=== PATIENT | male | born 1985 | race Caucasian/White ===

== ENCOUNTER 2018-03-06 16:49 | Inpatient (IN) | payer BC, OTHER ==
[~2018-03-06] VITALS: Ht 188 cm; Wt 73.5 kg
--- NOTE | 2018-03-06 17:05 | NUR ---
Pre-admission assessment Pre-admission assessment performed in the intake department of [facility]. Pt is severely intoxicated and is unable to answer questions appropriately. He has difficulty keeping his eyes open, pupils are pin point, and he c/o nausea. Vital signs: B/P 118/72, HR 127, RR 16, O2 sat 97%. Dr. Cedeno in intake during assessment. Pt transferred to ED for evaluation due to intoxication.
--- NOTE | 2018-03-06 21:49 | NUR ---
INTAKE ASSESSMENT BP: 127/76, HR:120, RR:16, SpO2:97% Pt is stable and able to be admitted on the unit. Pt complains of nausea, tremors and is noted with unsteady gait. Unit protocols regarding medications and vital signs every 4 hours were explained. Pt verbalized understanding. Will continue admission upon arrival on the unit.
[2018-03-06] MEDS ORDERED: LOPERAMIDE HCL 2 MG CAPSULE PO PRN ×2 (22:30)
[2018-03-06] MEDS ORDERED: diphenhydrAMINE 50 MG CAPSULE PO PRN (22:30)
[2018-03-06] MEDS ORDERED: LORAZEPAM 2 MG/1 ML VIAL IM PRN (22:30)
[2018-03-06] MEDS ORDERED: DIAZEPAM 10 MG TABLET PO PRN ×2 (22:30)
[2018-03-06] MEDS ORDERED: IBUPROFEN 600 MG TABLET PO PRN (22:30)
[2018-03-06] MEDS ORDERED: BUPRENORPHINE HCL 2 MG TAB.SUBL SL PRN (22:30)
[2018-03-06] MEDS ORDERED: DIAZEPAM 5 MG TABLET PO PRN (22:30)
--- NOTE | 2018-03-06 22:30 | NUR ---
CIWA and COWS Assessment Patient is presenting with tremors, stuffy nose, watery eyes, light sensitivity. Patients CIWA is 16 and COWS is 14. Safety in place, bed locked in low position, side rails up x2, and call light within reach. Will continue to monitor.
[2018-03-06 22:40] LABS: BASOPHILS % (AUTO) 0.6 % (0.0-2.0); EOSINOPHILS # (AUTO) 0.1 K/uL (0.0-0.7); EOSINOPHILS % (AUTO) 1.1 % (0.0-7.0); HEMATOCRIT 43.4 % (36.7-47.1); LYMPHOCYTES # (AUTO) 1.5 K/uL (20.0-40.0); LYMPHOCYTES % (AUTO) 28.6 % (20.5-51.5); MEAN CORPUSCULAR HGB CONC 35 g/dL (32.5-36.3); MEAN CORPUSCULAR VOLUME 89.4 fL (73.0-96.2); MONOCYTES # (AUTO) 0.3 K/uL (2.0-10.0); MONOCYTES % (AUTO) 6.3 % (0.0-11.0); NEUTROPHILS # (AUTO) 3.4 K/uL (1.8-8.9); NEUTROPHILS % (AUTO) 63.4 % (38.5-71.5); PLATELET COUNT (AUTO) 250 K/uL (152-348); RED BLOOD CELL COUNT(AUTO) 4.85 MIL/uL (4.06-5.63); WHITE BLOOD COUNT (AUTO) 5.3 K/uL (3.6-10.2)
--- NOTE | 2018-03-06 22:45 | NUR ---
Admission note Patient is a 32 year old male, admitted 03/06/2018 at 2205, here at [facility] for ETOH and Opiate withdrawal. Patient is alert oriented x4, he is full code and NKA. Patient is on fall and seizure precautions. Patient has a history of using ETOH, Heroin, and Suboxone. Patient denies being intoxicated and is able to answer questions. Patients drug use history did not match certain days and every time when he was asked he would give dates that overlapped other dates. Patient was a little incoherent. Patient stated "I'm starting to feel withdrawals." When the patient was asked what are his typical withdrawal symptoms patient states "my symptoms consist of shakiness, unsteadiness, nausea, DT's, hot and colds. Patient has a past medical history of Hepatitis C, fracture right hip, Depression, and Anxiety. Patient denies taking medication at home. Patient has a regular diet at home. Patient admits having a history of seizures due to withdrawal from ETOH and heroin. Patient stated his last seizure was back in 2016 in detox center in [place]. Patient also admits having 3 past overdoses with Heroin and did received medical treatment. Patient has been to multiple treatment center with no success. His most recent location treatment center was at [facility] for 5 days residential in July 2017, and to another one called [facility] from September 2017-December 2017. Patient stated his longest sobriety was for 110 days during September-December 2017. Patient denies induced delirium and cardiac complications due to withdrawal. Patient has not had a 5150 in the past. Patient is under the care of PCP Dr. Lanny Oconnor, in [facility]. Patient denies seeing a psychiatrist. Patient smokes 5 cigarettes a day since he was 22 years old, and also vapes. Substance abuse history: 1) ETOH: Patient has been drinking 750 ml of [place] for one month. Patient has been drinking alcohol since he was 13 years old. Patient's last drink was today 03/06/2018 before arriving to treatment at 1900, he had 750 ml. 2) Heroin: Patient has been using heroin IV 0.2 grams for one month. Patient starting using heroin when he was 27 years old. Patient last used yesterday night 03/05/2018, he used 0.2 grams IV. 3) Suboxone: Patient has been using Suboxone 8 mg SL twice a day for a month. Patient started using Suboxone since he was 32 years old. Patient stated he has Suboxone today 03/06/2018 at 1900. Patient denies family history with drug abuse. Patient's father has a medical history of arthritis, mother has no medical history. Patient two younger siblings and they dont use drugs. Patients highest level of education is high school diploma and some college credits. 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 Patient is depressed, withdrawn and flat affect. When asked the patient why they want to get sober he said " I can't keep doing this to myself." Patient stated the reason he drinks is because he lost his best friend because he 5 years ago and another best friend right after that, and it has been really hard to move on. Patient admits of having legal consequences due to his drinking. Patient also stated that all his previous girlfriends have left him because of his drinking and drug abuse. Patient is 6'2 and weights 162 lbs per standing scale. Patient's skin is intact and warm to touch. Capillary refill is <3 seconds. PERRLA is present, patient is sensitive to light, pupils 4 mm bilaterally. Lungs are clear to auscultation bilaterally. Abdomen is soft and non-distended and bowel sounds are present in all 4 quadrants. Patient reports that her last bowel movement was today 03/06/2018 in the morning. Initial vital signs are as follows: BP 114/72, P95, RR 18, O2 sat 100% on RA, T 99.0. Patient denies any pain. Breathing is even and unlabored. No signs and symptoms of respiratory distress. Patients initial CIWA is 16 and COWS 14, charge nurse and MD notified. Patient was oriented to unit at 2205. Patient was provided instructions regarding unit policies and rules. Patient provided urine and blood sample at intake office. MRSA was ordered, patient said he was recently hospitalized within the last 30 days, he did not elaborated where. Fall and seizure precautions initiated and maintained. Safety measures in place, bed in low and locked position, side rails up x2, and call light within reach. Will continue to monitor. Addendum: 03/07/18 at 0912 by BARBARA WEEKS RN Clarification of Use History: Patient states that in addition to 750mL of bourbon, he also drank 1.5L of wine daily. Patient tested positive for benzodiazepines. When asked, he stated that he does not recall taking benzos, but he said it is possible that he did so while severely intoxicated and thus does not remember it. Patient states that for the most part, he used Heroin 0.2g IV daily for the past month. However, on days when he could not obtain heroin, he took Suboxone. His Suboxone prescription is for 8mg SL BID, but he only took this intermittently. He never took Heroin and Suboxone simultaneously.
[2018-03-06 23:01] LABS: ETHANOL 291 MG/DL (0-0)
[2018-03-06 23:03] LABS: *AMPHETAMINE, URINE NEGATIVE (NEGATIVE); *BARBITURATE, URINE NEGATIVE (NEGATIVE); *CANNABINOID, URINE NEGATIVE (NEGATIVE); *COCCAINE, URINE NEGATIVE (NEGATIVE); *OPIATE, URINE NEGATIVE (NEGATIVE); *PHENCYCLIDINE SCREEN,URINE NEGATIVE (NEGATIVE)
[2018-03-06 23:05] LABS: ALANINE AMINOTRANSFERASE 264 U/L (16-63); ALKALINE PHOSPHATASE 103 U/L (50-136); AMYLASE 23 U/L (25-115); ASPARTATE AMINOTRANSFERASE 363 U/L (15-37); BILIRUBIN,TOTAL 1.3 mg/dL (0.2-1.0); CARBON DIOXIDE 29 mmol/L (21-32); CHLORIDE 103 mmol/L (98-107); CREATININE 0.7 mg/dL (0.6-1.3); GLUCOSE 123 mg/dL (74-106); LIPASE 136 U/L (73-393); MAGNESIUM 1.3 mg/dL (1.8-2.4); POTASSIUM 3.5 mmol/L (3.5-5.1); TOTAL PROTEIN, SERUM 7.5 g/dL (6.4-8.2); UREA NITROGEN, BLOOD 12 mg/dL (7-18)
[2018-03-06] MEDS: ONDANSETRON ODT 4 MG TAB.RAPDIS SL PRN (23:54)
[2018-03-06] MEDS: DICYCLOMINE HCL 20 MG TABLET PO PRN (23:54)
--- NOTE | 2018-03-06 23:54 | NUR ---
PRN Bentyl, Clonidine, Valium, and Zofran Patient was presenting with body aches, nausea, and anxiety. Administered PRN Bentyl, Clonidine, Valium, and Zofran and he tolerated well.
[2018-03-06] MEDS: CLONIDINE HCL 0.1 MG TABLET PO PRN (23:55)
[2018-03-07] VITALS: BP 114/72
--- NOTE | 2018-03-07 | NUR ---
CIWA and Cows Deferred Patient was noted in bed resting with eyes closed, breathing even and unlabored. Per protocol CIWA and COWS is to be assessed while patient is awake. Safety measures in place, will monitor.
--- NOTE | 2018-03-07 00:54 | NUR ---
Reassessment PRN Bentyl, Clonidine, Valium, and Zofran Patient tolerated well and he stated he felt better, patients nausea subside. Safety measures in place and will continue to monitor.
[2018-03-07] MEDS ORDERED: MAGNESIUM OXIDE 400 MG TABLET PO ONE ×2 (02:00→21:00)
[2018-03-07 04:00] VITALS: BP 119/76
--- NOTE | 2018-03-07 07:28 | NUR ---
End of shift note Patient is a 32 year old male admitted last night 03/06/2018. Patient is here for ETOH and Opiate withdrawal. Patient is on 4 day valium and 3 say subutex taper starting today 03/07/2018. Patient is on fall and seizure precautions. Patient had PRN Clonidine, Robaxin, zofran and bentyl. Patient is compliant with plan of care and seems depressed and withdrawn. Patient also had a Mg of 1.3 and was replaced last night. Patient slept for 8 hours and had a total intake of 1,500ml. Patient voided x1 and had no bowel movement during this shift. Breathing is even and unlabored. Safety in place, bed locked in low position, side rails up x2, and call light within reach. Endorse to day shift. Addendum: 03/07/18 at 0729 by BRITTA STOKES RN pasted end of shift twice by accident.
--- NOTE | 2018-03-07 07:30 | NUR ---
Start of Shift Note Pt. is a 32 y/o male admitted for the medically managed withdrawal from ETOH, and Opiates. Pt. was placed on a 4 day valium taper, and a 3 day subutex taper to manage withdrawal symptoms. Endorse from previous shift pt. presented with anxiety, agitation, nausea and stomach cramps. Received pt. in room. Pt. in bed with eyes closed. No signs of distress noted. Safety measures in place. Will continue to monitor pt.'s behavior for safety.
[2018-03-07 08:00] VITALS: BP 116/64
--- NOTE | 2018-03-07 08:00 | NUR ---
COWS/CIWA Assessment COWS of 12 and CIWA of 9. Pt. in room presenting with anxiety, fine hand tremors, diaphoresis, and agitation. Will give medications as ordered. Will continue to monitor pt.'s behavior for safety and medication effectiveness.
[2018-03-07] MEDS ORDERED: DIAZEPAM 5 MG TABLET PO SCH (09:00)
[2018-03-07] MEDS ORDERED: 4 DAY TAPER VALIUM-SERENITY PROTOCOL PO PRN (09:00)
[2018-03-07] MEDS ORDERED: TUBERCULIN,PURIF.PROT.DERIV. 5 TU/0.1 ML TEST ID ONE (09:00)
[2018-03-07] MEDS ORDERED: 3 DAY TAPER BUPRENORPHINE -SERENITY PROTOCOL SL PRN (09:00)
[2018-03-07] MEDS ORDERED: BUPRENORPHINE HCL 2 MG TAB.SUBL SL SCH (09:00)
[2018-03-07 12:00] VITALS: BP 126/75
--- NOTE | 2018-03-07 12:00 | NUR ---
COWS/CIWA Assessment COWS of 16 and CIWA of 15. Pt. in room presenting with anxiety, gross hand tremors, diaphoresis, nausea, and agitation. Pt. assessed by MD and new taper orders given. Will given medications as ordered. Will continue to monitor pt.'s behavior for safety and medication effectiveness.
[2018-03-07] MEDS: CLONIDINE HCL 0.1 MG TABLET PO PRN ×2 (12:08→23:32)
[2018-03-07] MEDS: ONDANSETRON ODT 4 MG TAB.RAPDIS SL PRN ×2 (12:09→20:57)
--- NOTE | 2018-03-07 12:09 | NUR ---
PRN Medication Pt. in room presenting with increased anxiety, agitation, and nausea. PRN Zofran, clonidine, and vistaril given to manage withdrawal symptoms. Will continue to monitor pt.'s behavior for safety and medication effectiveness.
[2018-03-07] MEDS: HYDROXYZINE PAMOATE 25 MG CAPSULE PO PRN ×2 (12:10→23:31)
[2018-03-07] MEDS ORDERED: 5 DAY TAPER BUPRENORPHINE -SERENITY PROTOCOL SL PRN (12:30)
[2018-03-07] MEDS ORDERED: 5 DAY TAPER VALIUM-SERENITY PROTOCOL PO PRN (12:30)
--- NOTE | 2018-03-07 13:00 | NUR ---
PRN Re-Assessment Pt. in room and reports a decrease in symptoms. Medication effective. Will continue to monitor pt.'s behavior for safety, and medication effectiveness.
[2018-03-07] MEDS: BUPRENORPHINE HCL 2 MG TAB.SUBL SL SCH ×3 (13:51→23:35)
[2018-03-07] MEDS: ONDANSETRON 4 MG/2 ML VIAL IM PRN (15:15)
--- NOTE | 2018-03-07 15:15 | NUR ---
PRN Medication Pt. in room complaining of nausea. PRN Zofran IM given at this time to manage symptoms. Will continue to monitor pt.'s behavior for safety and medication effectiveness.
--- NOTE | 2018-03-07 15:45 | NUR ---
PRN Re-Assessment Pt. in room reporting a decrease in nausea. Medication effective. Will continue to monitor pt.'s behavior for safety.
[2018-03-07 16:00] VITALS: BP 116/74
--- NOTE | 2018-03-07 16:00 | NUR ---
COWS/CIWA Assessment COWS of 165 and CIWA of 15. Pt. in room presenting with anxiety, gross hand tremors, diaphoresis, nausea, and agitation. Pt. compliant with medication regiment and treatment plan. Will continue to monitor pt.'s behavior for safety and medication effectiveness
[2018-03-07 16:08] LABS: ALANINE AMINOTRANSFERASE 230 U/L (16-63); ALKALINE PHOSPHATASE 87 U/L (50-136); ASPARTATE AMINOTRANSFERASE 296 U/L (15-37); BILIRUBIN,TOTAL 1.8 mg/dL (0.2-1.0); CARBON DIOXIDE 31 mmol/L (21-32); CHLORIDE 101 mmol/L (98-107); CREATININE 0.6 mg/dL (0.6-1.3); GLUCOSE 120 mg/dL (74-106); MAGNESIUM 1.4 mg/dL (1.8-2.4); POTASSIUM 4.1 mmol/L (3.5-5.1); TOTAL PROTEIN, SERUM 6.5 g/dL (6.4-8.2); UREA NITROGEN, BLOOD 14 mg/dL (7-18)
[2018-03-07] MEDS: DIAZEPAM 10 MG TABLET PO SCH ×2 (16:20→23:30)
[2018-03-07] MEDS: MAG HYDROX/AL HYDROX/SIMETH 30 ML LIQUID UDC PO PRN (17:24)
--- NOTE | 2018-03-07 17:24 | NUR ---
PRN Medication Pt. in room complaining of gastric distress. PRN Maalox given at this time to manage distress. Will continue to monitor pt.'s behavior for safety and medication effectiveness.
--- NOTE | 2018-03-07 18:00 | NUR ---
PRN Re-Assessment Pt. in room and reports improvement in gastric distress. Will continue to monitor pt.'s behavior for safety.
--- NOTE | 2018-03-07 19:23 | NUR ---
End of Shift Note Pt. is a 32 y/o male admitted for the medically managed withdrawal from ETOH, and Opiates. Pt. was placed on a 4 day valium taper, and a 3 day subutex taper to manage withdrawal symptoms initially. After assessment by pt. placed on 5 day subutex, and 5 day valium tapers. Throughout shift pt. presented with anxiety, agitation, nausea and gross hand tremors. Pt. compliant with treatment plan and medication regiment. Safety measures in place. Will endorse pt.'s care to oncoming shift.
--- NOTE | 2018-03-07 19:30 | NUR ---
Start of shift note Patient is a 32 year old male, admitted on 03/06/2018, here is here for medically supervised ETOH and Opiate withdrawal. Patient is on a 5 day Valium and 5 day Subutex taper. Patient is on fall and seizure precautions. Per endorsement patient had PRN Zofran IM and SL, Vistaril, clonidine, and Valium. Patient had an episode of emesis. Patients last CIWAS was 15 and CIWA is 15. Patient is on fall and seizure precautions. Safety in place, bed locked in low position, side rails up x2, and call light within reach. Will continue to monitor.
[2018-03-07 20:00] VITALS: BP 128/73
--- NOTE | 2018-03-07 20:00 | NUR ---
COWS and CIWA Assessment Patient is experiencing tremors, shakes, nausea, vomiting, sweats, stomach cramps, runny nose and body aches. Patients CIWA is 19 and COWS 18. Safety measures in place, will continue to monitor.
[2018-03-07] MEDS ORDERED: PROCHLORPERAZINE MALEATE 10 MG TABLET PO PRN (22:15)
[2018-03-07] MEDS ORDERED: PROCHLORPERAZINE MALEATE 10 MG TABLET ONE (23:11)
--- NOTE | 2018-03-07 23:29 | NUR ---
One time order Compazine 10 mg/Critical lab Mg Patient is presenting with continuous nausea and vomiting and a critical lab value of Mg 1.4. Administered a one-time dose of compazine and Mg-Ox 800mg. Patient tolerated well and will continue to monitor. Safety measures in place.
--- NOTE | 2018-03-07 23:30 | NUR ---
Late med pass Patient was nauseas and kept having multiple episodes of emesis, patient could not tolerate medication well. Administered 2100 medications and patient tolerated well. Safety measures in place, will continue to monitor.
[2018-03-07] MEDS: METHOCARBAMOL 750 MG TABLET PO PRN (23:32)
--- NOTE | 2018-03-07 23:32 | NUR ---
PRN Clonidine, Robaxin, Vistaril and Zofran Patient is presenting with tremors, runny nose, hot and colds, body aches, and anxiety. Administered PRN Clonidine, Robaxin, Vistaril and Zofran and patient tolerated well. Safety measures in place will continue to monitor.
[2018-03-08] VITALS: BP 133/79
--- NOTE | 2018-03-08 | NUR ---
COWS and CIWA Assessment Patient is experiencing tremors, shakes, nausea, vomiting, sweats, stomach cramps, runny nose and body aches. Patients CIWA is 16 and COWS 15. Safety measures in place, will continue to monitor.
--- NOTE | 2018-03-08 00:32 | NUR ---
Reassessment PRN Clonidine, Robaxin, Vistaril and Zofran Patient is resting in bed, nausea is still present and emesis, body aches have resolve. Medication noted to help but did not subside nausea and vomiting. Charge nurse and MD notified. Will continue to monitor.
[2018-03-08] MEDS: TRAZODONE 50 MG TABLET PO PRN ×2 (01:48→20:13)
--- NOTE | 2018-03-08 01:48 | NUR ---
PRN ZOFRAN IM, TRAZODONE Pt complains of nausea and episode of emesis x1. Pt also reports difficulty falling and staying asleep. PRN Zofran IM and Trazodone administered as ordered. Safety measures in place. Will monitor.
[2018-03-08] MEDS: ONDANSETRON 4 MG/2 ML VIAL IM PRN (01:49)
--- NOTE | 2018-03-08 01:49 | NUR ---
PRN Zofran and Trazodone Reassessment Patient is resting in bed, watching tv. Patient had not had another episode of emesis and nausea subside. Patient stated medication was effective. Safety measures in place, will continue to monitor.
[2018-03-08] MEDS ORDERED: DIAZEPAM 10 MG TABLET PO ONE (02:30)
--- NOTE | 2018-03-08 02:30 | NUR ---
One time Valium 20 mg order Patient was experiencing extreme levels of anxiety and hallucinations, administered a onetime dose of valium 20mg. Patient tolerated well, will continue to monitor. Patient is on a 1:1 for safety. Safety measures in place, will continue to monitor.
[2018-03-08 04:00] VITALS: BP 123/81
--- NOTE | 2018-03-08 04:00 | NUR ---
COWS and CIWA Assessment Patient is experiencing shakes, nausea, vomiting, stomach cramps, runny nose and body aches. Patients CIWA is 15 and COWS 15. Safety measures in place, will continue to monitor.
--- NOTE | 2018-03-08 07:20 | NUR ---
Start of Shift Note Pt. is a 32 y/o male admitted for the medically managed withdrawal from ETOH, and Opiates. Pt. is currently on a 5 day Subutex and Valium tapers. Endorse from previous shift pt. presented with multiple episodes of emesis and nausea, gross tremors and insomnia. Pt. was placed on a 1:1 for safety. Received pt. in room. Pt. laying in bed with red rings around his eyes, diaphoresis, tremors, anxiety, and restlessness. Pt. educated on treatment plan and medication regiment for the day. Maalox requested by pt. to help ease the discomfort from so many episodes of emesis. Will give zofran as well. 1:1 sitter at bed side. Safety measures in place. Will continue to monitor pt.s behavior for safety.
--- NOTE | 2018-03-08 07:23 | NUR ---
End of shift note Patient is a 32 year old male, admitted on 03/06/2018, here is here for medically supervised ETOH and Opiate withdrawal. Patient is on a 5 day Valium and 5 day Subutex taper. Patient is on fall and seizure precautions. Patient had PRN Zofran IM and SL, Vistaril, clonidine, Robaxin, compazine, trazodone and Valium. Patient had 15 episode of emesis. Patients last CIWAS was 16 and CIWA is 15. Patient slept 1 hours and had a total intake of 250ml. Patient did not void and had no bowel movements during this shift. Safety in place, bed locked in low position, side rails up x2, and call light within reach. Will endorse to day shift.
[2018-03-08] MEDS: MAG HYDROX/AL HYDROX/SIMETH 30 ML LIQUID UDC PO PRN ×3 (07:40→19:39)
--- NOTE | 2018-03-08 07:40 | NUR ---
PRN Medication Pt. in room complaining of gastric distress. PRN Maalox given at this time to manage withdrawal symptoms. Will continue to monitor pt.'s behavior for safety and medication effectiveness.
[2018-03-08 07:47] LABS: ALANINE AMINOTRANSFERASE 224 U/L (16-63); ALKALINE PHOSPHATASE 88 U/L (50-136); ASPARTATE AMINOTRANSFERASE 261 U/L (15-37); BILIRUBIN,TOTAL 1.9 mg/dL (0.2-1.0); CARBON DIOXIDE 33 mmol/L (21-32); CHLORIDE 99 mmol/L (98-107); CREATININE 0.7 mg/dL (0.6-1.3); GLUCOSE 73 mg/dL (74-106); MAGNESIUM 1.4 mg/dL (1.8-2.4); POTASSIUM 3.1 mmol/L (3.5-5.1); TOTAL PROTEIN, SERUM 6.7 g/dL (6.4-8.2); UREA NITROGEN, BLOOD 12 mg/dL (7-18)
[2018-03-08 08:00] VITALS: BP 123/86
--- NOTE | 2018-03-08 08:00 | NUR ---
COWS/CIWA Assessment COWS of 14 and CIWA of 14. Pt. in room presenting with anxiety, gross hand tremors, diaphoresis, nausea, and agitation. Will give medications as ordered. Will continue to monitor pt.'s behavior for safety and medication effectiveness
[2018-03-08 08:07] LABS: HEPATITIS B SURFACE AG Negative (Negative)
--- NOTE | 2018-03-08 08:30 | NUR ---
PRN Re-Assessment Pt. in room and reports a reduction in symptoms. Medication effective. Will continue to monitor pt.'s behavior and medication effectiveness.
[2018-03-08] MEDS: CLONIDINE HCL 0.1 MG TABLET PO PRN ×2 (08:46→20:23)
[2018-03-08] MEDS: ONDANSETRON ODT 4 MG TAB.RAPDIS SL PRN ×2 (08:46→19:40)
[2018-03-08] MEDS: BUPRENORPHINE HCL 2 MG TAB.SUBL SL SCH ×3 (08:47→20:13)
[2018-03-08] MEDS: DIAZEPAM 5 MG TABLET PO SCH ×4 (08:47→20:13)
[2018-03-08] MEDS: METHOCARBAMOL 750 MG TABLET PO PRN ×2 (08:47→20:12)
[2018-03-08] MEDS: DICYCLOMINE HCL 20 MG TABLET PO PRN (08:47)
--- NOTE | 2018-03-08 08:47 | NUR ---
PRN Medication Pt. in room presenting with anxiety, nausea, tremors, stomach cramps and body aches. PRN Clonidine, Robaxin, Zofran, and Bentyl. Will continue to monitor safety and medication effectiveness.
[2018-03-08] MEDS ORDERED: BUPRENORPHINE HCL 2 MG TAB.SUBL SL SCH (09:00)
[2018-03-08] MEDS ORDERED: DIAZEPAM 5 MG TABLET PO SCH (09:00)
--- NOTE | 2018-03-08 09:30 | NUR ---
PRN Re-Assessment Pt. in room and reports a reduction in symptoms. Medications effective. Will continue to monitor pt.'s behavior for safety.
--- NOTE | 2018-03-08 11:00 | NUR ---
Therapist prompted client to attend group therapy.
[2018-03-08 12:00] VITALS: BP 117/66
--- NOTE | 2018-03-08 12:00 | NUR ---
COWS/CIWA Assessment COWS of 14 and CIWA of 14. Pt. in room presenting with anxiety, gross hand tremors, diaphoresis, nausea, and agitation. Pt. compliant with medication regiment and treatment plan. Will continue to monitor pt.'s behavior for safety and medication effectiveness
[2018-03-08] MEDS ORDERED: MAGNESIUM OXIDE 400 MG TABLET PO ONE ×2 (12:15→21:15)
[2018-03-08] MEDS ORDERED: POTASSIUM CHLORIDE 20 MEQ TAB.PRT.SR PO ONE ×2 (12:15→21:15)
[2018-03-08 16:00] VITALS: BP 124/79
--- NOTE | 2018-03-08 17:00 | NUR ---
PRN Re-Assessment Pt. in room and reports a reduction in symptoms. Medication effective. Will continue to monitor pt.'s behavior and medication effectiveness.
[2018-03-08 18:12] LABS: CREATININE 0.8 mg/dL (0.6-1.3); MAGNESIUM 1.5 mg/dL (1.8-2.4); POTASSIUM 3.3 mmol/L (3.5-5.1)
--- NOTE | 2018-03-08 19:13 | NUR ---
End of Shift Note Pt. is a 32 y/o male admitted for the medically managed withdrawal from ETOH, and Opiates. Pt. is currently on a 5 day Subutex and Valium tapers. Throughout shift pt. presented with nausea, gross tremors, diaphoresis anxiety and agitation. Pt. continues to be on a 1:1 for safety. Safety measures in place. Will endorse pt.s care to oncoming shift.
--- NOTE | 2018-03-08 19:30 | NUR ---
START OF SHIFT Pt is a 32 y/o male admitted on 03/06/18 for ETOH and opiates withdrawal. Pt is on a 5 day Valium taper and a 5 day Subutex taper, tolerating well. Last CIWA 14 14. PRN Clonidine, Robaxin, Zofran, and Bentyl was administered during day shift. Upon assessment Pt presents with anxiety, agitation, nausea, heartburn, constipation, body aches, tremors, and difficulty falling and staying asleep. Medications due. Safety measures in place. Call light within reach. Will continue to monitor.
--- NOTE | 2018-03-08 19:40 | NUR ---
PRN ZOFRAN ODT AND MAALOX ADMINISTRATION Pt complain of nausea and heartburn. PRN medications were administered per order. Safety measures in place. Call light within reach. Will continue to monitor.
[2018-03-08 20:00] VITALS: BP 190/85
--- NOTE | 2018-03-08 20:00 | NUR ---
[facility] 14 COWS 14 Pt presents with agitation, anxiety, tremors, chills, insomnia, generalized body aches, and restlessness. Pt continues on a 1:1 due to safety. Safety measures in place. Call light within reach. Will continue to monitor.
[2018-03-08] MEDS: HYDROXYZINE PAMOATE 25 MG CAPSULE PO PRN (20:13)
--- NOTE | 2018-03-08 20:13 | NUR ---
PRN TRAZODONE, ROBAXIN, AND VISTARIL ADMINISTRATION Pt complains of anxiety, agitation, tremors, generalized body aches, and difficulty falling and staying asleep. PRN medication was administered per order. Safety measures in place. Call light within reach. Will continue to monitor.
[2018-03-08] MEDS: MAGNESIUM HYDROXIDE 30 ML LIQUID UDC PO PRN (20:23)
--- NOTE | 2018-03-08 20:23 | NUR ---
PRN CLONIDINE AND MILK OF MAGNESIA ADMINISTRATION Pt complains of anxiety, agitation, and constipation. PRN medication was administered per order. Safety measures in place. Call light within reach. Will continue to monitor.
--- NOTE | 2018-03-08 20:40 | NUR ---
PRN ZOFRAN ODT AND MAALOX REASSESSMENT Pt denies any nausea, vomiting, or heartburn. Pt stated, "I feel better." PRN medication noted effective. Safety measures in place. Call light within reach. Will continue to monitor.
--- NOTE | 2018-03-08 21:13 | NUR ---
PRN CLONIDINE, TRAZODONE, AND VISTARIL REASSESSMENT Pt continues to complain of anxiety, agitation, tremors, chills, and difficulty falling and staying asleep. Medications noted not effective. Charge nurse aware. Safety measures in place. Call light within reach. Will continue to monitor.
--- NOTE | 2018-03-08 21:23 | NUR ---
PRN ROBAXIN AND MILK OF MAGNESIA Pt continues to complain of generalized body aches and constipation. Medications noted as not effective. Charge nurse aware. Safety measures in place. Call light within reach. Will continue to monitor.
[2018-03-09] VITALS: BP 131/82
--- NOTE | 2018-03-09 | NUR ---
[facility] 14 COWS 14 Pt presents with anxiety, agitation, insomnia, restlessness, tremors, dilated pupils, generalized body aches, and chills. Pt continues to be on a 1:1 for safety reasons. Safety measures in place. Call light within reach. Will continue to monitor.
[2018-03-09] MEDS: MAG HYDROX/AL HYDROX/SIMETH 30 ML LIQUID UDC PO PRN (01:35)
--- NOTE | 2018-03-09 01:35 | NUR ---
PRN Administration Pt reported heartburn - requested relief. Maalox administered. Safety measures in place, will continue to monitor.
--- NOTE | 2018-03-09 02:35 | NUR ---
PRN Reassessment No reports of heartburn at time of assessment. Safety measures in place, will continue to monitor.
--- NOTE | 2018-03-09 04:00 | NUR ---
COWS/CIWA DEFERRED AND VITAL SIGNS REFUSED Patient is noted in bed with eyes closed. Breathing even and non labored. COWS/CIWA and vital signs not able to be completed per order. Safety measures in place. Call light within reach. Will continue to monitor.
--- NOTE | 2018-03-09 07:25 | NUR ---
END OF SHIFT Pt is a 32 y/o male admitted on 03/06/18 for ETOH and opiates withdrawal. Pt to continue a 5 day Valium taper and a 5 day Subutex taper. Pt presented with anxiety, agitation, nausea, heartburn, constipation, body aches, tremors, and difficulty falling and staying asleep.PRN Clonidine, Trazodone, Robaxin, Vistaril, Zofran, Milk of Magnesia, and Maalox was administered, effective in S/S of withdrawal as verbalized by Pt. Last CIWA 14 COWS 14. Pt slept 6 hours. Intake 1736 ml, void x 1, stool x 1. Safety measures in place. Call light within reach. Pt's needs have been met. Endorsed to day shift.
[2018-03-09 07:34] LABS: ALANINE AMINOTRANSFERASE 178 U/L (16-63); ALKALINE PHOSPHATASE 84 U/L (50-136); ASPARTATE AMINOTRANSFERASE 159 U/L (15-37); BILIRUBIN,TOTAL 1.2 mg/dL (0.2-1.0); CARBON DIOXIDE 33 mmol/L (21-32); CHLORIDE 100 mmol/L (98-107); CREATININE 0.7 mg/dL (0.6-1.3); GLUCOSE 93 mg/dL (74-106); TOTAL PROTEIN, SERUM 6.2 g/dL (6.4-8.2); UREA NITROGEN, BLOOD 11 mg/dL (7-18)
[2018-03-09 08:00] VITALS: BP 126/73
--- NOTE | 2018-03-09 08:00 | NUR ---
START OF SHIFT COWS CIWA ASSESSMENT Pt 32 y/o male admitted for eoth and opiate withdrawal. Pt received in room on bed with eyes closed resting, but arousable to name. Pt alert and oriented to name, place, and time. Perrla. Skin warm and dry to touch. Respirations even and unlabored. Appears disheveled. Clothes scattered throughout the room. Encouraged to maintain hygiene. Cows=7 ciwa=6@0800. Anxious. Pressured speech. Fidgety. It was reported that pt slept for 6 hours last night. Last cows=14 ciwa=14@1999. Pt is on a 5 day valium taper and is on day 3. Pt also on a 5 day subutex taper and is on day 3. Bed on lowest position with side rails x2 up for safety. Call light within reach. Pt is scheduled to be discharged today.
[2018-03-09] MEDS: DIAZEPAM 5 MG TABLET PO SCH ×3 (08:39→21:15)
[2018-03-09] MEDS ORDERED: BUPRENORPHINE HCL 2 MG TAB.SUBL SL SCH ×2 (09:00)
[2018-03-09] MEDS ORDERED: DIAZEPAM 5 MG TABLET PO SCH (09:00)
[2018-03-09 12:00] VITALS: BP 123/75
--- NOTE | 2018-03-09 12:00 | NUR ---
COWS CIWA ASSESSMENT cows=11 ciwa=11. Bilateral hand tremors noted. Anxious and restless. Pressured speech. Complaints of intermittent perspiration and chills. General discomfort.
[2018-03-09] MEDS: BUPRENORPHINE HCL 2 MG TAB.SUBL SL SCH ×2 (14:08→21:15)
[2018-03-09] MEDS: CEPHALEXIN MONOHYDRATE 500 MG CAPSULE PO SCH ×2 (15:08→22:34)
[2018-03-09] MEDS: ONDANSETRON ODT 4 MG TAB.RAPDIS SL PRN (15:08)
--- NOTE | 2018-03-09 15:10 | NUR ---
PRN ZOFRAN Pt states is nauseated. Zofran odt prn per MD order.
[2018-03-09 16:00] VITALS: BP 126/81
--- NOTE | 2018-03-09 16:00 | NUR ---
COWS CIWA ASSESSMENT cows=11 ciwa =11. Anxious and restless.Pressured speech. Irritable. Bilateral hand tremors noted. Complaints of generalized discomfort. Nausea.
--- NOTE | 2018-03-09 16:10 | NUR ---
PRN ZOFRAN EVAL Pt states medication effective and denies any nausea at this time.
[2018-03-09] MEDS: MINERAL OIL/PETROLAT OPHT OINT 3.5 GM TUBE EACHEYE PRN ×2 (16:30→21:25)
--- NOTE | 2018-03-09 16:33 | NUR ---
PRN ARTIFICIAL EYE OINTMENT Pt with complaints of dry eyes. Prn artificial eye ointment per MD order administered.
--- NOTE | 2018-03-09 17:33 | NUR ---
PRN ARTIFICIAL EYE OINTMENT Pt states medication is effective.
--- NOTE | 2018-03-09 18:57 | NUR ---
END OF SHIFT Pt 32 y/o male admitted for eoth and opiate withdrawal. Pt alert and oriented to name, place, and time. Perrla. Skin warm and moist touch. Respirations even and unlabored. Appears disheveled. Clothes and empty drink bottles scattered throughout the room. Encouraged to maintain hygiene. Isolative to room with minimal peer interaction. Low motivation for self care. Pt selective with group activity today. Pt 1:1 sitter was dc'd today. Anxious and restless. Irritable and agitated. Pressured speech. Generalized body aches. Complaints of intermittent perspiration and chills, and generalized discomfort. Episode of nausea. Bilateral hand tremors. Medication compliant. Last cows=11 ciwa=11 @1600. Pt is on a 5 day valium taper and is on day 3. Pt also on a 5 day subutex taper and is on day 3. Bed on lowest position with side rails x2 up for safety. Call light within reach.
--- NOTE | 2018-03-09 19:30 | NUR ---
START OF SHIFT Received patient awake, alert, and oriented x4 ambulating about the facility with respirations even and unlabored. Patient is a 32 year old male admitted for medically supervised detox from ETOH and opiates with secondary diagnoses of depression, anxiety, hepatitis C, and a fracture of his right hip 13 months prior. Patient appears disheveled, irritable, agitated, tremulous, anxious, and worried. Skin is warm and dry to touch. Per endorsement, he was on a 1 to 1 for unsteady gait related to frequent vomiting and that he required PRN eye ointment for itchy and dry eyes. Will continue to monitor.
[2018-03-09 20:00] VITALS: BP 133/82
--- NOTE | 2018-03-09 20:00 | NUR ---
COWS = 10, CIWA = 10 Patient continues to present with anxiety, restlessness, nausea, and tremors. No requests for PRN medications. Will continue to monitor.
[2018-03-09] MEDS: MAGNESIUM HYDROXIDE 30 ML LIQUID UDC PO PRN (21:15)
[2018-03-09] MEDS: TRAZODONE 50 MG TABLET PO PRN (21:25)
--- NOTE | 2018-03-09 21:25 | NUR ---
PRN MEDICATION ADMINISTRATION Patient reported dry and itchy eyes, difficulty falling asleep, and constipation. PRN medications administered as follows: Artificial Tears Ophthalmic ointment, Trazodone, Milk of Magnesia for respective complaints of negative symptoms per MD orders. Will reassess within one hour and continue to monitor.
--- NOTE | 2018-03-09 22:25 | NUR ---
PRN MEDICATION REASSESSMENT Patient reports relief from dry and itchy eyes and relief from insomnia. Will continue to monitor for relief from constipation during shift. No new complaints of distress at this time.
--- NOTE | 2018-03-10 | NUR ---
VITAL SIGNS AND COWS/CIWA ASSESSMENT DEFERRED Patient noted lying in bed with even, unlabored respirations. HOB and bilateral side rails raised. Bed in a low and locked position. Vital signs refused and COWS/CIWA assessment deferred. Will continue to monitor.
--- NOTE | 2018-03-10 04:00 | NUR ---
VITAL SIGNS AND COWS/CIWA ASSESSMENT DEFERRED Patient noted lying in bed with even, unlabored respirations. HOB and bilateral side rails raised. Bed in a low and locked position. Call light within reach. Vital signs refused and COWS/CIWA assessment deferred. Will continue to monitor.
[2018-03-10] MEDS: CEPHALEXIN MONOHYDRATE 500 MG CAPSULE PO SCH ×3 (06:38→22:05)
--- NOTE | 2018-03-10 07:32 | NUR ---
END OF SHIFT Patient is noted in bed with eyes closed and even, unlabored respirations. HOB and bilateral side rails are raised. Seizure and fall precautions are maintained. Patient is a 32 year old male admitted for medically supervised detox from ETOH and opiates with secondary diagnoses of depression, anxiety, hepatitis C, and a fracture of his right hip 13 months prior. Patient was noted to appear disheveled with uncombed hair. He was also tremulous, anxious, and had a worried affect. He reported having itchy eyes, trouble sleeping, and constipation for which PRN medications artificial tears, Trazodone, and Milk of Magnesia were given respectively. All medications were noted to be effective except for Milk of Magnesia which was endorsed to AM nurse. Encouraged patient to intake more fluids including prune juice and to increase ambulation and physical activity. Last COWS is 10 and last CIWA is 10 taken at 2000. Patient slept for about 8 hours. Endorsed to AM nurse with all pertinent information discussed.
[2018-03-10 08:00] VITALS: BP 108/64
--- NOTE | 2018-03-10 08:00 | NUR ---
START OF SHIFT COWS CIWA ASSESSMENT Pt 32 y/o male admitted for etoh and opiate withdrawal. Pt received in room on bed awake watching television. Pt alert and oriented to name, place, and time. Perrla. Skin warm and moist to touch. Respirations even and unlabored. Appears disheveled. Hair uncombed. Clothes and empty drink bottles scattered throughout the room. Encouraged to maintain hygiene. Cows=10 ciwa= 10@0800. Anxious and restless. Pressured speech noted. Irritable and agitated. Bilateral hand tremors noted. Complaints of generalized discomfort. It was reported that pt slept for 8 hours last night. Last cows=10 ciwa=10 @ 1999. Pt is on a 5 day valium taper and is on day 4. Pt is on a 5 day subutex taper and is on day 4. Bed on lowest position with side rails x 2 up for safety. Call light within reach.
[2018-03-10] MEDS: DIAZEPAM 5 MG TABLET PO SCH ×2 (08:09→20:36)
[2018-03-10] MEDS: BUPRENORPHINE HCL 2 MG TAB.SUBL SL SCH ×3 (08:09→20:36)
[2018-03-10] MEDS: MINERAL OIL/PETROLAT OPHT OINT 3.5 GM TUBE EACHEYE PRN ×2 (08:09→14:18)
--- NOTE | 2018-03-10 08:18 | NUR ---
PRN ARTIFICIAL TEARS Pt with c/o dry eyes. Artificial tears prn per MD order given.
[2018-03-10] MEDS ORDERED: DIAZEPAM 5 MG TABLET PO SCH (09:00)
--- NOTE | 2018-03-10 09:18 | NUR ---
PRN ARTIFICIAL TEARS Pt states effective.
[2018-03-10] MEDS: GABAPENTIN 300 MG CAPSULE PO SCH ×3 (10:40→16:31)
[2018-03-10 12:00] VITALS: BP 126/77
--- NOTE | 2018-03-10 12:00 | NUR ---
COWS CIWA ASSESSMENT cows=10 ciwa=10. Bilateral hand tremors noted. Anxious and restless. Pressured speech. Irritable. Complaints of generalize discomfort.
[2018-03-10] MEDS: MAG HYDROX/AL HYDROX/SIMETH 30 ML LIQUID UDC PO PRN ×2 (12:09→16:34)
--- NOTE | 2018-03-10 12:10 | NUR ---
PRN MALOOX Complaints of heartburn. Maloox prn per MD order given.
--- NOTE | 2018-03-10 13:10 | NUR ---
PRN MALOOX EVAL Pt states medication effective.
[2018-03-10] MEDS: METHOCARBAMOL 750 MG TABLET PO PRN (14:18)
--- NOTE | 2018-03-10 14:30 | NUR ---
PRN ARTIFICIAL TEARS MOTRIN ROBAXIN States dry eyes. Artificial tears prn per MD order given. Complaints of left foot pain 08/31. Motrin po prn per MD order. Complaints of body aches 10/31. Robaxin po prn per MD order given.
--- NOTE | 2018-03-10 15:30 | NUR ---
PRN ARTIFICIAL TEARS MOTRIN ROBAXIN Pt states medication effective. left foot pain 2/10. Generalized body aches 4/10.
[2018-03-10 16:00] VITALS: BP 131/83
--- NOTE | 2018-03-10 16:00 | NUR ---
COWS CIWA ASSESSMENT cows=10 ciwa=10. Anxious and restless. Pressured speech. Bilateral hand tremors noted. Irritable. Complaints of generalized discomfort.
--- NOTE | 2018-03-10 16:34 | NUR ---
PRN MALOOX pt with complaints heartburn. Maloox prn per MD order given.
[2018-03-10] MEDS ORDERED: METHOCARBAMOL 750 MG TABLET PO PRN (17:15)
--- NOTE | 2018-03-10 17:34 | NUR ---
PRN MALOOX Pt states medication effective.
--- NOTE | 2018-03-10 18:43 | NUR ---
END OF SHIFT Pt 32 y/o male admitted for eoth and opiate withdrawal. Pt alert and oriented to name, place, and time. Perrla. Skin warm and moist to touch. Respirations even and unlabored. Appears disheveled. Clothes and empty drink bottles scattered throughout the room. Encouraged to maintain hygiene. Anxious and restless. Pressured speech. Irritable. Bilateral hand tremors noted. Complaints of generalized discomfort. Isolative to room with minimal peer interaction. Pt attended group activity. Last cows=10 ciwa=10 @1600. Pt is on a 5 day valium tape and is on day 4. Pt is on 5 day subutex taper and is on day 4. Bed on lowest position with side rails x2 up for safety. Call light within reach.
--- NOTE | 2018-03-10 19:30 | NUR ---
Start of shift note Received report from day shift nurse. Patient is a 32 year old male admitted for ETOH and Opiates. Patient is on 5 day Valium and 5 day Subutex taper. Patient with left distal 2nd toe abscess. S/P I &D. On Keflex antibiotic. PRN Motrin, Robaxin, Maalox x 2 and Artificial tears x 2. Last COWS 10 and CIWA 10. Patient alert and oriented x 4. Patient presents with flat affect, depressed mood, anxious and c/o pain on 2nd toe. Safety measures in place. Will continue to monitor.
[2018-03-10 20:00] VITALS: BP 128/95
--- NOTE | 2018-03-10 20:00 | NUR ---
COWS and CIWA assessment Patient reports anxiety, restlessness, hot and cold sweat, bilateral hand tremors, restless legs and c/o left 2nd toe . COWS 12 and CIWA 12
[2018-03-10] MEDS: KETOROLAC TROMETHAMINE 30 MG INJ IM PRN (20:39)
--- NOTE | 2018-03-10 20:39 | NUR ---
PRN Toradol IM administration Patient was c/o left toe pain 12/01. Will monitor for effectiveness
--- NOTE | 2018-03-10 21:09 | NUR ---
PRN Toradol IM re-assessment Patient states Toradol is helpful and effective. Pain lessened
[2018-03-10] MEDS: TRAZODONE 50 MG TABLET PO PRN (22:05)
--- NOTE | 2018-03-10 22:05 | NUR ---
PRN Trazadone administration Patent requests for sleep aid. Will monitor for effectiveness
--- NOTE | 2018-03-10 23:05 | NUR ---
PRN Trazadone re-assessment Patient lying in bed with eyes closed. Respiration even and unlabored. Will continue to monitor
--- NOTE | 2018-03-11 | NUR ---
COWS and CIWA assessment Patient lying in bed with eyes closed. Respiration even and unlabored. Will continue to monitor
--- NOTE | 2018-03-11 04:00 | NUR ---
COWS and CIWA assessment Patient lying in bed with eyes closed. Respiration even and unlabored. Will continue to monitor
[2018-03-11] MEDS: CEPHALEXIN MONOHYDRATE 500 MG CAPSULE PO SCH ×3 (06:22→21:17)
--- NOTE | 2018-03-11 07:28 | NUR ---
End of shift note Patient slept 8 hours. Fluid intake 736 ml. Voided x 1 BM x 1. Patient compliant with medication. Scheduled medication and taper given as ordered, tolerated well and no adverse reaction. On Keflex antibiotic for left 2nd toe. Encouraged fluids. PRN Trazadone and Toradol IM given, effective. Last COWS 12 and CIWA 12. Patient alert and oriented x 4. Patient presents with flat affect, depressed mood , anxious and c/o pain on 2nd toe. Safety measures in place. Will continue to monitor.
[2018-03-11 08:00] VITALS: BP 121/74
--- NOTE | 2018-03-11 08:00 | NUR ---
START OF SHIFT NOTE Received report from night nurse, 32 year old male admitted for ETOH/Heroin withdrawal and patient continues with his Valium/Subutex taper tolerating well. Per endorsement patient received PRN Toradol and Trazodone, slept for 8 hours, last COWS-12, CIWA-12. Received patient alert awake oriented x4. Breathing normal no SOB noted. Skin intact warm and dry to touch. Educated patient regarding plan of the day and medication regimen. All safety measures in place, call light within reach. Will cont with plan of care.
[2018-03-11] MEDS: GABAPENTIN 300 MG CAPSULE PO SCH ×3 (08:34→16:14)
--- NOTE | 2018-03-11 08:34 | NUR ---
CIWA/COWS ASSESSMENT COWS-11, CIWA-11, Patient presented with labile facial expression, body aches, anxious, agitated, restless, fatigue, anhedonia, stomach cramps, chills, sweats, bilateral hand tremors noted. Patient was given his scheduled medications. Will cont to monitor.
[2018-03-11] MEDS ORDERED: BUPRENORPHINE HCL 2 MG TAB.SUBL SL SCH (09:00)
[2018-03-11] MEDS ORDERED: DIAZEPAM 5 MG TABLET PO SCH (09:00)
[2018-03-11] MEDS: NEOMY/BACITRAC/POLYMI OINT 28.35 GM TUBE TOP SCH (09:23)
[2018-03-11] MEDS: KETOROLAC TROMETHAMINE 30 MG INJ IM PRN ×2 (09:26→16:16)
--- NOTE | 2018-03-11 09:26 | NUR ---
PRN TORADOL Patient c/o left foot second toe pain 01/01, PRN Toradol 30mg IM administered as ordered. Will cont to monitor and reassess.
--- NOTE | 2018-03-11 09:56 | NUR ---
TORADOL REASSESSMENT Patient reported Toradol was effective pain lower to 3/10.
[2018-03-11 12:00] VITALS: BP 132/82
--- NOTE | 2018-03-11 12:00 | NUR ---
CIWA/COWS ASSESSMENT Patient continues to exhibited s/s of withdrawal such as anxiety, agitation, restless, fatigue, chills, sweats, bilateral hand tremors noted. COWS-9, CIWA-9. Will cont to monitor.
--- NOTE | 2018-03-11 13:59 | NUR ---
Therapist prompted client to attend all group therapy sessions.
[2018-03-11] MEDS ORDERED: CEPH500C2 PO (14:08)
[2018-03-11] MEDS ORDERED: METH-406 PO (14:08)
[2018-03-11] MEDS ORDERED: CLON0.1T14 PO (14:08)
[2018-03-11] MEDS ORDERED: TRAZ-213 PO (14:08)
[2018-03-11] MEDS ORDERED: GABA-534 PO (14:08)
[2018-03-11 16:00] VITALS: BP 150/90
--- NOTE | 2018-03-11 16:16 | NUR ---
PRN TORADOL Patient reported left foot second toe pain /, PRN Toradol 30mg IM administered as ordered. Will cont to monitor and reassess.
--- NOTE | 2018-03-11 16:36 | NUR ---
TORADOL REASSESSMENT Patient reported Toradol was effective pain lower to 2/10.
--- NOTE | 2018-03-11 19:06 | NUR ---
END OF SHIFT NOTE Gave report to night nurse 32 year old male admitted for ETOH/Heroin withdrawal and patient completed with Valium and Subutex taper tolerated well. Patient set for discharge in AM. Patient presented with labile facial expression, unkempt room, anxious, agitated, fatigue, anhedonia, restless, aches, bilateral hand tremors. patient received his scheduled medications along with PRN Toradol IM x2 for left foot second toe pain noted to be effective. Patient noted interacting with peers and attending groups therapies. Appetite good. Encourage PO fluids as tolerated. Patient denies any SI/HI. All needs attended and met. Last COWS score was 7/CIWA-7 at 1600. All safety measures in place. Endorse patient to night nurse in stable condition.
--- NOTE | 2018-03-11 19:30 | NUR ---
START OF SHIFT Pt is a 32 year old male admitted for ETOH/Heroin withdrawal. He has completed his Valium and Subutex taper and is scheduled for discharge in the morning. Pt received in room,pleasant on approach,stated that he will be going to an out patient program upon discharge. Last COWS score was 7; CIWA-7 at 1600. All safety measures in place, call light is within reach,Will continue to monitor for safety.
[2018-03-11 20:00] VITALS: BP 135/88
[2018-03-11] MEDS: MINERAL OIL/PETROLAT OPHT OINT 3.5 GM TUBE EACHEYE PRN (21:23)
--- NOTE | 2018-03-11 21:23 | NUR ---
PRN Artificial tears ophthalmic ointment administered as ordered for c/o itching.Will continue to monitor.
--- NOTE | 2018-03-11 22:17 | NUR ---
PRN REASSESSMENT PRN effective;Pt states feeling better.
[2018-03-12] VITALS: BP 129/85
--- NOTE | 2018-03-12 | NUR ---
COWS=5 / CIWA=5. M/B ANXIETY DUE TO PAIN AND INSOMNIA.
[2018-03-12] MEDS: KETOROLAC TROMETHAMINE 30 MG INJ IM PRN ×2 (00:05→08:49)
[2018-03-12] MEDS: TRAZODONE 50 MG TABLET PO PRN (00:06)
--- NOTE | 2018-03-12 00:07 | NUR ---
PRN MEDS PRN TORADOL IM GIVEN ORDERED FOR C/O LEFT FOOT PAIN,12/01.PRN TRAZODONE 50 MG PU GIVEN FOR C/O INSOMNIA.WILL MONITOR.
--- NOTE | 2018-03-12 01:00 | NUR ---
PRN REASSESSMENT Pt is calm and resting in bed with eyes closed,no s/s of distress noted; breathing is even and non labored; will continue to monitor.
--- NOTE | 2018-03-12 04:00 | NUR ---
COWS and CIWA deferred Patient is lying in bed with eyes closed. Respiration even and unlabored, no s/s of distress noted,v/s refused. Will continue to monitor
--- NOTE | 2018-03-12 06:39 | NUR ---
END OF SHIFT Pt is a 32 year old male admitted for ETOH/Heroin withdrawal. He has completed his Valium and Subutex taper and is scheduled for discharge this morning. Last COWS score was 5; CIWA-5 at 0000.PRN artificial tears,Trazodone and Toradol IM were given with good effect.Pt slept 6 hours,fluid intake was 1036 ml,voided x 3. All safety measures in place, call light is within reach,Will continue to monitor for safety.
[2018-03-12] MEDS: CEPHALEXIN MONOHYDRATE 500 MG CAPSULE PO SCH (06:45)
--- NOTE | 2018-03-12 07:55 | NUR ---
START OF SHIFT NOTE Received report from night nurse, 32 year old male admitted for ETOH/Heroin withdrawal and patient completed his Valium/Subutex taper tolerated well. Per endorsement patient received PRN Toradol and Trazodone, slept for 6 hours, last COWS-5, CIWA-5. Received patient alert awake oriented x4. Breathing normal no SOB noted. Skin intact warm and dry to touch. Educated patient regarding plan of the day and medication regimen. Patient set for discharge today. All safety measures in place, call light within reach. Will cont with plan of care.
[2018-03-12 08:00] VITALS: BP 137/90
[2018-03-12] MEDS: GABAPENTIN 300 MG CAPSULE PO SCH (08:39)
[2018-03-12] MEDS: NEOMY/BACITRAC/POLYMI OINT 28.35 GM TUBE TOP SCH (08:39)
--- NOTE | 2018-03-12 08:49 | NUR ---
PRN TORADOL Patient reported left foot second toe pain 8/10, PRN Toradol 30mg IM administered as ordered. Will cont to monitor and reassess.
--- NOTE | 2018-03-12 09:19 | NUR ---
TORADOL REASSESSMENT Patient reported Toradol was effective pain lower to 2/10.
--- NOTE | 2018-03-12 09:48 | NUR ---
DISCHARGE NOTE Patient is alert awake oriented discharge from [facility] in stable condition. Vital signs WNL. Skin intact warm and dry to touch. Patient denies any SI/HI. All discharge paper work completed signed and dated. All belongings returned to the patient and prescriptions. Patient discharge from [facility] to "[facility]" in stable condition
== END 2018-03-12 09:48 | disposition other institution (70) | DRG 895 ==
LOC: SRC 16:49 → UNDOADMIN 16:49 → SRC 21:13
PROVIDERS: ADMIT Family Medicine Addiction Medicine; ATTEND Family Medicine Addiction Medicine
PROC: HZ2ZZZZ Detoxification Services for Substance Abuse Treatment (ICD-10-PCS; principal; 2018-03-06)
PROC: HZ31ZZZ Individual Counseling for Substance Abuse Treatment, Behavioral (ICD-10-PCS; 2018-03-08)
PROC: HZ41ZZZ Group Counseling for Substance Abuse Treatment, Behavioral (ICD-10-PCS; 2018-03-09)
PROC: 0H9NXZZ Drainage of Left Foot Skin, External Approach (ICD-10-PCS; 2018-03-10)
DX: F10.231 Alcohol dependence with withdrawal delirium (principal); G40.509 Epileptic seizures related to external causes, not intractable, without status epilepticus; L02.619 Cutaneous abscess of unspecified foot; F11.23 Opioid dependence with withdrawal; Y90.8 Blood alcohol level of 240 mg/100 ml or more; Z87.81 Personal history of (healed) traumatic fracture; Z82.61 Family history of arthritis; F17.210 Nicotine dependence, cigarettes, uncomplicated; F41.1 Generalized anxiety disorder; E83.42 Hypomagnesemia; F32.9 Major depressive disorder, single episode, unspecified; H10.9 Unspecified conjunctivitis; L03.032 Cellulitis of left toe
CPT/HCPCS: 36415; 70030-TC; 80307; 80346; 83690; 83735; 84443; 85025; 86592; 86705; 86803; 87340; 87806; G0480; J1885; J2405; Q0162; Q0164

== ENCOUNTER 2020-12-21 13:24 | Emergency (ER) | payer BC, OTHER ==
[~2020-12-21] VITALS: Ht 185.4 cm; Wt 81.6 kg
[~2020-12-21 13:24] MED LIST: CEPH500C2 PO; CLON0.1T14 PO; GABA-534 PO; METH-406 PO; TRAZ-252 PO
--- NOTE | 2020-12-21 13:46 | NUR ---
EVALUATED THE PT . PT IS IN ROOM #2A.
[2020-12-21 14:49] LABS: CARBON DIOXIDE 29 mmol/L (21-32); CHLORIDE 111 mmol/L (98-107); CREATININE 0.5 mg/dL (0.6-1.3); GLUCOSE 94 mg/dL (74-106); UREA NITROGEN, BLOOD 8 mg/dL (7-18)
[2020-12-21 14:54] LABS: ALANINE AMINOTRANSFERASE 63 U/L (16-63); ALKALINE PHOSPHATASE 143 U/L (50-136); ASPARTATE AMINOTRANSFERASE 48 U/L (15-37); BILIRUBIN,DIRECT 0.3 mg/dL (0.0-0.2); BILIRUBIN,TOTAL 1.1 mg/dL (0.2-1.0); TOTAL PROTEIN, SERUM 6.2 g/dL (6.4-8.2)
[2020-12-21 15:01] LABS: HEMATOCRIT 37.2 % (36.7-47.1); MEAN CORPUSCULAR HEMOGLOBIN 23.6 uug (23.8-33.4); MEAN CORPUSCULAR VOLUME 75.4 fL (73.0-96.2); PLATELET COUNT (AUTO) 110 K/uL (152-348)
[2020-12-21] MEDS ORDERED: CHLO25CA22 PO (20:32)
[2020-12-21] MEDS ORDERED: CHLORDIAZEPOXIDE HCL 25 MG CAPSULE PO ONE (20:45)
--- NOTE | 2020-12-21 20:52 | NUR ---
PT WAS D/C'd TO HOME BY DR LOPEZ. D/C INSTRUCTIONS GIVEN TO THE PT BY DR LOPEZ. GAIT IS STABLE. NO S/S OF ACUTE DISTRESS AT THIS TIME. NO SOB, NO N/V, PT DENIES PAIN, NO DIZZINESS.
[2020-12-21 21:04] VITALS: BP 142/76
== END 2020-12-21 21:06 | disposition home or self-care (01) ==
LOC: ER 13:25
DX: F10.129 Alcohol abuse with intoxication, unspecified (principal); Y90.8 Blood alcohol level of 240 mg/100 ml or more; R74.01 Elevation of levels of liver transaminase levels
CPT/HCPCS: 36415; 85025; A4663; G0480; J7030

== ENCOUNTER 2023-01-05 15:05 | Emergency (ER) | payer OTHER ==
[~2023-01-05] VITALS: Ht 177.8 cm; Wt 81.6 kg
[~2023-01-05 15:05] MED LIST changes: +CHLO25CA22 PO
[2023-01-05 15:44] LABS: BASOPHILS # (AUTO) 0.3 K/UL (0.0-0.2); BASOPHILS % (AUTO) 3.1 % (0.0-2.0); EOSINOPHILS # (AUTO) 0.3 K/uL (0.0-0.7); EOSINOPHILS % (AUTO) 3.8 % (0.0-7.0); HEMATOCRIT 37.5 % (36.7-47.1); HEMOGLOBIN 11.8 g/dL (12.5-16.3); LYMPHOCYTES # (AUTO) 1.4 K/uL (0.8-4.8); LYMPHOCYTES % (AUTO) 15.6 % (20.5-51.5); MEAN CORPUSCULAR HEMOGLOBIN 26.1 uug (23.8-33.4); MEAN CORPUSCULAR HGB CONC 32 g/dL (32.5-36.3); MEAN CORPUSCULAR VOLUME 82.8 fL (73.0-96.2); MONOCYTES # (AUTO) 0.4 K/uL (0.1-1.30); MONOCYTES % (AUTO) 4.6 % (0.0-11.0); NEUTROPHILS # (AUTO) 6.4 K/uL (1.8-8.9); NEUTROPHILS % (AUTO) 72.9 % (38.5-71.5); PLATELET COUNT (AUTO) 294 K/uL (152-348); RED BLOOD CELL COUNT(AUTO) 4.52 MIL/uL (4.06-5.63); RED CELL DISTRIBUTION WIDTH 22.3 % (12.1-16.2); WHITE BLOOD COUNT (AUTO) 8.8 K/uL (3.6-10.2)
[2023-01-05 15:59] LABS: DIFFERENTIAL COMMENT 1
[2023-01-05 16:09] LABS: ALANINE AMINOTRANSFERASE 26 U/L (16-63); ALBUMIN 3.6 g/dL (3.4-5.0); ALKALINE PHOSPHATASE 83 U/L (50-136); ASPARTATE AMINOTRANSFERASE 22 U/L (15-37); BILIRUBIN,DIRECT 0.1 mg/dL (0.0-0.2); BILIRUBIN,TOTAL 0.4 mg/dL (0.2-1.0); CALCIUM 8.8 mg/dL (8.5-10.1); CARBON DIOXIDE 28 mmol/L (21-32); CHLORIDE 102 mmol/L (98-107); CREATININE 0.8 mg/dL (0.6-1.3); GLUCOSE 90 mg/dL (74-106); POTASSIUM 3.8 mmol/L (3.5-5.1); SODIUM SERUM 142 mmol/L (136-145); TOTAL PROTEIN, SERUM 7.4 g/dL (6.4-8.2); UREA NITROGEN, BLOOD 15 mg/dL (7-18)
[2023-01-05 16:11] LABS: ACETAMINOPHEN < 10.0 ug/mL (10-30)
[2023-01-05 16:19] LABS: ETHANOL 504 MG/DL (0-10)
[2023-01-05 18:43] LABS: *BILIRUBIN,URIN NEGATIVE (NEGATIVE); *BLOOD, URINE NEGATIVE (NEGATIVE); *CLARITY,URINE CLEAR (CLEAR); *COLOR,URINE YELLOW (YELLOW); *KETONES,URINE NEGATIVE (NEGATIVE); *PROTEIN,URINE NEGATIVE (NEGATIVE); *UROBILINOGEN,URINE 0.2 E.U./dl (NORMAL); LEUKOCYTE ESTERASE ,URINE NEGATIVE (NEGATIVE); NITRITE, URINE NEGATIVE (NEGATIVE); UGLUCOSE NEGATIVE (NEGATIVE)
[2023-01-05 19:06] LABS: *AMPHETAMINE, URINE NEGATIVE (NEGATIVE); *BARBITURATE, URINE NEGATIVE (NEGATIVE); *BENZODIAZEPINE, URINE POSITIVE (NEGATIVE); *CANNABINOID, URINE NEGATIVE (NEGATIVE); *COCCAINE, URINE NEGATIVE (NEGATIVE); *OPIATE, URINE NEGATIVE (NEGATIVE); *PHENCYCLIDINE SCREEN,URINE NEGATIVE (NEGATIVE); FENTANYL, URINE NEGATIVE (NEGATIVE)
[2023-01-06] MEDS ORDERED: THIAMINE HCL 100 MG TABLET PO ONE (03:30)
[2023-01-06] MEDS ORDERED: THIAMINE HCL 100 MG TABLET ONE (04:53)
[2023-01-06] MEDS ORDERED: CHLORDIAZEPOXIDE HCL 25 MG CAPSULE PO ONE (06:00)
[2023-01-06] MEDS ORDERED: CHLO25CA22 PO (06:08)
[2023-01-06] MEDS ORDERED: CHLORDIAZEPOXIDE HCL 25 MG CAPSULE ONE (06:14)
[2023-01-06 06:42] VITALS: BP 141/78; TEMP 97.9; O2SAT 98
== END 2023-01-06 06:30 | disposition home or self-care (01) ==
LOC: ER 15:05
DX: F10.129 Alcohol abuse with intoxication, unspecified (principal); Z79.899 Other long term (current) drug therapy; Y90.8 Blood alcohol level of 240 mg/100 ml or more
CPT/HCPCS: 36415; 85025; A4663; G0480